=== PATIENT | female | born 1975 | race Caucasian/White ===

== ENCOUNTER 2017-01-05 01:15 | Emergency (ER) | payer MEDICAID | END 2017-01-05 02:30 | disposition home or self-care (01) | LOC: D.ER 01:15 | DX: B37.81 Candidal esophagitis (principal); F17.200 Nicotine dependence, unspecified, uncomplicated ==

== ENCOUNTER 2017-08-10 21:17 | Emergency (ER) | payer MEDICARE | END 2017-08-10 22:22 | disposition home or self-care (01) | LOC: D.ER 21:17 | DX: H66.91 Otitis media, unspecified, right ear (principal) ==

== ENCOUNTER 2019-02-23 21:21 | Emergency (ER) | payer MEDICARE ==
[~2019-02-23] VITALS: Ht 154.9 cm; Wt 90.9 kg
[2019-02-23 21:29] VITALS: BP 148/92; Ht 154.9 cm; Wt 90.9 kg
[2019-02-23] MEDS ORDERED: GABAPENTIN100 MG PO (21:31)
[2019-02-23] MEDS ORDERED: ATIVAN0.5 MG (21:31)
[2019-02-23] MEDS ORDERED: PROTONIX40 MG PO (21:32)
[2019-02-23] MEDS ORDERED: CLARITIN 10 MG10 MG (21:32)
[2019-02-23] MEDS ORDERED: ESKALITH CR450 M1 PO (21:32)
[2019-02-23] MEDS ORDERED: LATUDA40 MG (21:32)
== END 2019-02-24 01:05 | disposition home or self-care (01) ==
LOC: D.ER 21:21
DX: M54.2 Cervicalgia (principal)

== ENCOUNTER 2019-09-07 18:25 | Emergency (ER) | payer MEDICARE ==
[~2019-09-07] VITALS: Ht 154.9 cm; Wt 95.5 kg
[~2019-09-07 18:25] MED LIST: ATIVAN0.5 MG; CLARITIN 10 MG10 MG; ESKALITH CR450 M1 PO; GABAPENTIN100 MG PO; LATUDA40 MG; PROTONIX40 MG PO
[2019-09-07 19:21] VITALS: Ht 154.9 cm; Wt 95.5 kg
[2019-09-07] MEDS ORDERED: [UNRECOGNIZED DRUG - REMARK] (19:23)
[2019-09-07] MEDS ORDERED: LITHIUM CARBON300 MG PO (19:23)
[2019-09-07] MEDS ORDERED: NEURONTIN 300300 MG PO (19:23)
[2019-09-07] MEDS ORDERED: VITAMIN D250000 UNIT PO (19:24)
[2019-09-07] MEDS ORDERED: LATUDA40 MG PO (19:24)
[2019-09-07] MEDS ORDERED: ATIVAN0.5 MG PO (19:24)
[2019-09-07 19:58] LABS: BASOPHILS 0.1 % (0-2); EOSINOPHILS 0.6 % (0-7); HEMATOCRIT 37.9 % (36.0-48.0); HEMOGLOBIN 11.1 g/dL (12-16); IMMATURE GRANULOCYTES 0.1 % (0-5); LYMPHOCYTES 13.9 % (15-50); MCH 26.9 pg (26.0-34.0); MCHC 29.3 g/dL (31.0-37.0); MCV 91.8 fL (80.0-100.0); MEAN PLATELET VOLUME 11.5 fL (7.4-10.4); MONOCYTES 8.2 % (2-11); NEUTROPHILS 77.1 % (40-80); PLATELET COUNT 275 10x3/uL (130-400); RBC 4.13 10x6/uL (4.00-5.40); RDW 17.4 % (11.5-14.5)
[2019-09-07 20:11] LABS: APPEARANCE HAZY (CLEAR); BILIRUBIN NEGATIVE (NEGATIVE); COLOR YELLOW (YELLOW); GLUCOSE NEGATIVE (NEGATIVE); KETONE NEGATIVE (NEGATIVE); NITRITE POSITIVE (NEGATIVE); PROTEIN 1+ mg/dL (NEGATIVE); UROBILINOGEN NORMAL (NORMAL)
[2019-09-07 20:12] LABS: BACTERIA MODERATE /hpf (NEGATIVE); EPITHELIAL CELLS 0-5 /hpf (0-5); WHITE CELLS - URINE >50 /hpf (NEGATIVE)
[2019-09-07 20:15] LABS: CALC OSMOLALITY 273 mosm/kg (275-300); CALCIUM 8.9 mg/dL (8.5-10.1); CARBON DIOXIDE 29.7 mmol/L (21.0-32.0); CHLORIDE - SERUM 103 mmol/L (98-107); CREATININE - SERUM 0.7 mg/dL (0.6-1.3); GLUCOSE 96 mg/dL (74-106); POTASSIUM - SERUM 3.4 mmol/L (3.5-5.1); SODIUM 138 mmol/L (136-145); UREA NITROGEN 6 mg/dL (7-18); eGFR NON AFRICAN AMERICAN > 90 mL/min (90-120)
[2019-09-07 20:18] LABS: HCG URINE NEGATIVE (NEGATIVE)
[2019-09-07 20:22] LABS: ALBUMIN 2.8 g/dL (3.4-5.0); ALKALINE PHOSPHATASE 110 U/L (46-116); ALT (SGPT) 13 U/L (10-68); BILIRUBIN - TOTAL 0.91 mg/dL (0.2-1.3); PROTEIN - SERUM 6.9 g/dL (6.4-8.2)
[2019-09-07] MEDS ORDERED: LEVAQUIN750 MG PO (21:46)
[2019-09-07] MEDS ORDERED: ZOFRAN8 MG PO (21:46)
[2019-09-07 22:53] VITALS: BP 103/63
== END 2019-09-07 22:54 | disposition home or self-care (01) ==
LOC: D.ER 18:25
PROVIDERS: Family Medicine
DX: N12 Tubulo-interstitial nephritis, not specified as acute or chronic (principal); R10.31 Right lower quadrant pain; J18.9 Pneumonia, unspecified organism; Z72.0 Tobacco use

== ENCOUNTER 2019-12-27 22:23 | Inpatient (IN) | payer MEDICARE ==
[~2019-12-27] VITALS: Ht 154.9 cm; Wt 90.7 kg
[~2019-12-27 22:23] MED LIST changes: +ATIVAN0.5 MG PO; +LATUDA40 MG PO; +LEVAQUIN750 MG PO; +LITHIUM CARBON300 MG PO; +NEURONTIN 300300 MG PO; +VITAMIN D250000 UNIT PO; +ZOFRAN8 MG PO; +[UNRECOGNIZED DRUG - REMARK]
[2019-12-27 23:26] LABS: BASOPHILS 0.4 % (0-2); EOSINOPHILS 2.9 % (0-7); HEMATOCRIT 36.4 % (36.0-48.0); HEMOGLOBIN 10.8 g/dL (12-16); IMMATURE GRANULOCYTES 0.3 % (0-5); LYMPHOCYTES 27.6 % (15-50); MCH 26.6 pg (26.0-34.0); MCHC 29.7 g/dL (31.0-37.0); MCV 89.7 fL (80.0-100.0); MEAN PLATELET VOLUME 11.5 fL (7.4-10.4); MONOCYTES 5.2 % (2-11); NEUTROPHILS 63.6 % (40-80); PLATELET COUNT 229 10x3/uL (130-400); RBC 4.06 10x6/uL (4.00-5.40); RDW 15.6 % (11.5-14.5); WBC 7.8 10x3/uL (4.8-10.8)
[2019-12-27 23:28] LABS: CALC OSMOLALITY 273 mosm/kg (275-300); CALCIUM 8.5 mg/dL (8.5-10.1); CARBON DIOXIDE 29.1 mmol/L (21.0-32.0); CHLORIDE - SERUM 103 mmol/L (98-107); CREATININE - SERUM 0.9 mg/dL (0.6-1.3); GLUCOSE 99 mg/dL (74-106); POTASSIUM - SERUM 3.9 mmol/L (3.5-5.1); SODIUM 138 mmol/L (136-145); UREA NITROGEN 7 mg/dL (7-18); eGFR NON AFRICAN AMERICAN 71 mL/min (90-120)
[2019-12-27 23:30] LABS: INR 1.02 (0.85-1.17); PROTIME 13.4 SECONDS (11.6-15.0)
[2019-12-27 23:45] LABS: ALKALINE PHOSPHATASE 107 U/L (30-120); ALT (SGPT) 13 U/L (10-68); BILIRUBIN - TOTAL 0.35 mg/dL (0.2-1.3); CKMB 2.4 U/L (0.0-3.6); CREATINE KINASE 95 UL (21-215); MAGNESIUM - SERUM 2.2 mg/dL (1.8-2.4); PRO BNP 264 pg/mL (0-125); PROTEIN - SERUM 6.4 g/dL (6.4-8.2)
[2019-12-27 23:46] LABS: TROPONIN-I < 0.017 ng/mL (0.000-0.060)
[2019-12-28 02:50] VITALS: BP 114/80
[2019-12-28] MEDS ORDERED: PROTONIX40 MG PO (03:40)
--- NOTE | 2019-12-28 03:48 | NUR ---
PATIENT TO THE FLOOR. PATIENT IS VERY CONCERNED WITH MEDICATION ROUTINE AND STATES IF SHE DOES NOT GET ALL HER MEDS THEN SHE WILL NOT BE STAYING. PATIENT STATES SHE ONLY CAME IN TO SEE IF SHE STILL HAS PNUENOMIA. PATIENT HAS LEFT HAND PIV THAT IS PATENT AND RUNNABX AT THIS TIME. PATIENT SHOWS NO S/SX OF DISTRESS. CALL LIGHT WITHIN REACH AND BED IN LOWEST LOCKED POSITION.
[2019-12-28 04:00] VITALS: BP 121/86
[2019-12-28 04:23] VITALS: BP 127/86; BMI 37.8
[2019-12-28 05:38] LABS: ALBUMIN 2.7 g/dL (3.4-5.0); ALKALINE PHOSPHATASE 101 U/L (30-120); ALT (SGPT) 13 U/L (10-68); BILIRUBIN - TOTAL 0.27 mg/dL (0.2-1.3); CALC OSMOLALITY 275 mosm/kg (275-300); CALCIUM 8.2 mg/dL (8.5-10.1); CARBON DIOXIDE 27.9 mmol/L (21.0-32.0); CHLORIDE - SERUM 105 mmol/L (98-107); CREATININE - SERUM 0.7 mg/dL (0.6-1.3); GLUCOSE 95 mg/dL (74-106); POTASSIUM - SERUM 4.1 mmol/L (3.5-5.1); PROTEIN - SERUM 5.6 g/dL (6.4-8.2); SODIUM 139 mmol/L (136-145); UREA NITROGEN 8 mg/dL (7-18); eGFR NON AFRICAN AMERICAN > 90 mL/min (90-120)
--- NOTE | 2019-12-28 05:56 | NUR ---
PATIENT LAYING IN BED IN SUPINE POSITION, EYES CLOSED BREATHING EVEN AND UNLABORED. NO STRESS NOTED AT THIS TIME. CALL LIGHT WITHIN REACH AND BED IN LOWEST LOCKED POSITION.
[2019-12-28 06:59] LABS: BASOPHILS 0.2 % (0-2); EOSINOPHILS 3.1 % (0-7); HEMATOCRIT 34.2 % (36.0-48.0); HEMOGLOBIN 10.2 g/dL (12-16); IMMATURE GRANULOCYTES 0.1 % (0-5); LYMPHOCYTES 27.8 % (15-50); MCH 26.8 pg (26.0-34.0); MCHC 29.8 g/dL (31.0-37.0); MCV 89.8 fL (80.0-100.0); MONOCYTES 5.6 % (2-11); NEUTROPHILS 63.2 % (40-80); PLATELET COUNT 194 10x3/uL (130-400); RBC 3.81 10x6/uL (4.00-5.40); RDW 15.9 % (11.5-14.5); WBC 8.4 10x3/uL (4.8-10.8)
[2019-12-28 21:48] VITALS: BP 134/82
[2019-12-29] VITALS (7 sets, daily range): BP systolic 106–138; BP diastolic 52–82
[2019-12-29 05:15] LABS: BASOPHILS 0.6 % (0-2); EOSINOPHILS 4.1 % (0-7); HEMATOCRIT 35.6 % (36.0-48.0); HEMOGLOBIN 10.2 g/dL (12-16); LYMPHOCYTES 32.8 % (15-50); MCH 26.3 pg (26.0-34.0); MCHC 28.7 g/dL (31.0-37.0); MEAN PLATELET VOLUME 11.8 fL (7.4-10.4); MONOCYTES 6.6 % (2-11); NEUTROPHILS 55.9 % (40-80); PLATELET COUNT 199 10x3/uL (130-400); RBC 3.88 10x6/uL (4.00-5.40); RDW 15.9 % (11.5-14.5)
[2019-12-29 05:21] LABS: MCV 91.8 fL (80.0-100.0); WBC 5.2 10x3/uL (4.8-10.8)
[2019-12-29 05:35] LABS: ALBUMIN 2.5 g/dL (3.4-5.0); ALKALINE PHOSPHATASE 107 U/L (30-120); ALT (SGPT) 12 U/L (10-68); BILIRUBIN - TOTAL 0.61 mg/dL (0.2-1.3); CALC OSMOLALITY 274 mosm/kg (275-300); CALCIUM 8.4 mg/dL (8.5-10.1); CHLORIDE - SERUM 107 mmol/L (98-107); CREATININE - SERUM 0.6 mg/dL (0.6-1.3); GLUCOSE 92 mg/dL (74-106); LDH 151 U/L (81-234); PROTEIN - SERUM 5.7 g/dL (6.4-8.2); SODIUM 139 mmol/L (136-145); eGFR NON AFRICAN AMERICAN > 90 mL/min (90-120)
[2019-12-29 05:50] LABS: UREA NITROGEN 5 mg/dL (7-18)
[2019-12-29 07:49] LABS: APTT 32.3 SECONDS (22.8-39.4); INR 1.08 (0.85-1.17)
--- NOTE | 2019-12-29 08:11 | MORECARE ---
CASE MANAGEMENT DISCHARGE SUMMARY PATIENT: CLAUDIA SANTIAGO UNIT: [id number] ADM DATE: 12/28/19 AGE: 44 : 71 SEX: F ROOM/BED: D.2230 AUTHOR: CESAR NICOLE PHYSICIAN: REFERRING PHYSICIAN: JORGE L MCGREGOR MD DATE OF SERVICE: 12/29/19 Discharge Plan Patient Name: CLAUDIA SANTIAGO [facility] [facility] 1975 Planned Disposition: Home Anticipated Discharge Date: Discharge Date: Expected LOS: Initial Reviewer: [email or web address] Initial Review Date: 12/29/2019 Generated: 12/29/19 9:11 am DCPIA - Discharge Planning Initial Assessment Updated by [email or web address]: Kelsey Cabezas on 12/29/19 8:11 am * Is the patient Alert and Oriented? Yes * How many steps to enter\exit or inside your home? 0/0 * PCP Dr. Juliocesar Macdonald - first visit 01/10 * Pharmacy [facility] * Preadmission Environment Home Alone * ADLs Independent * Equipment None * List name and contact numbers for known caregivers / representatives who currently or will assist patient after discharge: Kristyn Cullen - [facility] - [phone] * Verbal permission to speak to the caregivers and representatives has been obtained from the patient. Yes * Community resources currently utilized None * Additional services required to return to the preadmission environment? No * Can the patient safely return to the preadmission environment? Yes * Has this patient been hospitalized within the prior 30 days at any hospital? No Patient Name: CLAUDIA SANTIAGO Page [phone] at 0811 All edits/amendments must be made on the electronic document DICTATION DATE: 12/29/19810 PIPE ORGAN BUILDER: WILLIE 12/29/19810 RPT#: [id number] DC DATE: STATUS: ADM IN [facility] [address] [place] [address] END OF REPORT
--- NOTE | 2019-12-29 08:18 | MORECARE ---
CASE MANAGEMENT DISCHARGE SUMMARY PATIENT: CLAUDIA SANTIAGO UNIT: [id number] ADM DATE: 12/28/19 AGE: 44 : 71 SEX: F ROOM/BED: D.2230 AUTHOR: BONNIE,DOC PHYSICIAN: REFERRING PHYSICIAN: JORGE L MCGREGOR MD DATE OF SERVICE: 12/29/19 Discharge Plan Patient Name: CLAUDIA SANTIAGO Facility: [facility]:[place] : 1975 Planned Disposition: Home Anticipated Discharge Date: Discharge Date: Expected LOS: Initial Reviewer: [email or web address] Initial Review Date: 12/29/2019 Generated: 12/29/19 9:17 am Comments DCP- Discharge Planning Updated by [email or web address]: Kelsey Cabezas on 12/29/19 7:[address] Patient Name: CLAUDIA SANTIAGO Admission Status: ER Accout number: [id number] Admission Date: 12-28-2019 : 1975 Admission Diagnosis: Attending: JORGE L MCGREGOR Current LOS: 1 Anticipated DC Date: Planned Disposition: Home Primary Insurance: MEDICARE A & B Discharge Planning Comments: CM met with patient to complete initial dc planning assessment. CM educated patient on the CM role and verbal consent given by patient to complete assessment. Patient lives at home alone, address and phone number verified on face sheet. At discharge patient plans to return and feels this is a safe discharge. CM discussed availability of home health, rehab services, and medical equipment. Patient denied known discharge needs at this time. States her car is here and she will drive herself home on discharge. CM will continue to follow and will assist as needed with dc plans/needs. Shot Peening Operator: Kelsey Cabezas DCPIA - Discharge Planning Initial Assessment Updated by [email or web address]: Kelsey Cabezas on 12/29/19 8:11 am * Is the patient Alert and Oriented? Yes * How many steps to enter\exit or inside your home? 0/0 * PCP Dr. Juliocesar Macdonald - first visit 01/10 * Pharmacy [facility] [address] * Preadmission Environment Home Alone * ADLs Independent * Equipment None * List name and contact numbers for known caregivers / representatives who currently or will assist patient after discharge: Kristyn [facility] [phone] * Verbal permission to speak to the caregivers and representatives has been obtained from the patient. Yes * Community resources currently utilized None * Additional services required to return to the preadmission environment? No * Can the patient safely return to the preadmission environment? Yes * Has this patient been hospitalized within the prior 30 days at any hospital? No Last DP export: 12/29/19 7:11 a Patient Name: CLAUDIA SANTIAGO Page [phone] at 0818 All edits/amendments must be made on the electronic document DICTATION DATE: 12/29/19816 PRINCIPAL GIFTS OFFICER: WILLIE 12/29/19816 RPT#: [id number] DC DATE: STATUS: ADM IN [facility] [address] [place] [address] END OF REPORT
--- NOTE | 2019-12-29 10:15 | NUR ---
PATIENT TO GET THORACENTESIS.
--- NOTE | 2019-12-29 11:55 | NUR ---
PATIENT IN ROOM WITH IV INTACT. NO COMPLAINTS OR SIGNS OF DISTRESS. VS STABLE. DRESSING OVER PROCEDURE SITE CDI. FAMILY AT BEDSIDE. CALL LIGHT WITHIN REACH.
[2019-12-29 16:23] LABS: PROTEIN - BODY FLUID 2.6 G/DL
[2019-12-29 17:44] LABS: EOS BF 3 %; MACROPHAGES BF 18 %; MESOTHELIALS BF 3 %; NEUT - BF 23 %
--- NOTE | 2019-12-29 19:31 | NUR ---
PATIENT RESTING IN BED WITH NO S/S OF DISTRESS. S/L IV TO PATIENT'S LEFT FA. PATIENT DENIES OTHER NEEDS AT THIS TIME. BED IN LOWEST POSITION AND CALL LIGHT WITHIN REACH. ENCOURAGED THE PATIENT TO CALL IF SHE HAS NEEDS. WILL CONTINUE TO MONITOR.
--- NOTE | 2019-12-29 20:00 | NUR ---
PATIENT IN SHOWER AT THIS TIME
--- NOTE | 2019-12-29 21:07 | NUR ---
PATIENT RESTING IN BED WITH GUEST AT BEDSIDE AND NO S/S OF DISTRESS. BED IN LOWEST POSITION AND CALL LIGHT WITHIN REACH. ENCOURAGED THE PATIENT TO CALL IF HE HAS NEEDS. WILL CONTINUE TO MONITOR.
--- NOTE | 2019-12-29 21:07 | NUR ---
ADMINISTERED MEDS PER ORDERS. PATIENT DENIES OTHER NEEDS AT THIS TIME. BED IN LOWEST POSITION AND CALL LIGHT WITHIN REACH. ENCOURAGED THE PATIENT TO CALL IF SHE HAS NEEDS.
[2019-12-30] VITALS: BP 106/66
[2019-12-30 04:00] VITALS: BP 121/80
[2019-12-30 06:20] LABS: BASOPHILS 0.2 % (0-2); EOSINOPHILS 4.1 % (0-7); HEMATOCRIT 35.9 % (36.0-48.0); HEMOGLOBIN 10.3 g/dL (12-16); LYMPHOCYTES 21.3 % (15-50); MCHC 28.7 g/dL (31.0-37.0); MCV 90.7 fL (80.0-100.0); MEAN PLATELET VOLUME 12.3 fL (7.4-10.4); NEUTROPHILS 68.4 % (40-80); PLATELET COUNT 208 10x3/uL (130-400); RBC 3.96 10x6/uL (4.00-5.40); RDW 15.9 % (11.5-14.5); WBC 5.8 10x3/uL (4.8-10.8)
[2019-12-30 06:35] LABS: ALBUMIN 2.6 g/dL (3.4-5.0); ALKALINE PHOSPHATASE 98 U/L (30-120); ALT (SGPT) 11 U/L (10-68); BILIRUBIN - TOTAL 0.55 mg/dL (0.2-1.3); CALC OSMOLALITY 273 mosm/kg (275-300); CALCIUM 8.2 mg/dL (8.5-10.1); CARBON DIOXIDE 28.8 mmol/L (21.0-32.0); CHLORIDE - SERUM 106 mmol/L (98-107); CREATININE - SERUM 0.7 mg/dL (0.6-1.3); GLUCOSE 97 mg/dL (74-106); POTASSIUM - SERUM 3.7 mmol/L (3.5-5.1); PROTEIN - SERUM 5.9 g/dL (6.4-8.2); SODIUM 138 mmol/L (136-145); eGFR NON AFRICAN AMERICAN > 90 mL/min (90-120)
[2019-12-30 06:37] LABS: UREA NITROGEN 7 mg/dL (7-18)
--- NOTE | 2019-12-30 07:38 | NUR ---
RESTING IN BED, NO DISTRESS NOTED, UP AD PAULA IN ROOM, PROVIDED WITH CUP FOR SPUTUM SPECIMEN, SL IN PLACE, ABT INFUSING
[2019-12-30 09:06] VITALS: BP 121/83
[2019-12-30 09:09] LABS: ANA REFLEX - DIRECT Negative (Negative)
--- NOTE | 2019-12-30 10:04 | NUR ---
I have reviewed this patient and I concur with the Shift Assessment completed by the Licensed Practical Nurse today this shift.
[2019-12-30 12:50] VITALS: BP 112/70
[2019-12-30 13:09] LABS: ACID FAST SMEAR Negative (()); AFB SPECIMEN PROCESSING Not Indicated (())
[2019-12-30 16:08] LABS: FUNGUS STAIN Final report (())
[2019-12-30 16:44] VITALS: BP 117/76
[2019-12-30 20:00] VITALS: BP 131/78
--- NOTE | 2019-12-30 20:00 | NUR ---
PT SITTING UP IN BED WITHOUT DISTRESS, AOX4. IV LEFT WRIST INFUSING ABX AT THIS TIME. NO REDNESS OR SWELLING AT SITE. SLIGHT SWELLING TO LEFT HAND FROM PREVIOUS IV INFILTRATION. PT USING INCENTIVE SPIROMETER. BILAT LOWER LOBES DIMINISHED. SOB WITH EXERTION. ADVIL GIVEN FOR PT FEELING ACHY. DENIES OTHER NEEDS. CL IN REACH, WILL CTM
[2019-12-31 04:00] VITALS: BP 119/75
[2019-12-31 06:56] LABS: ALBUMIN 2.5 g/dL (3.4-5.0); ALKALINE PHOSPHATASE 90 U/L (30-120); ALT (SGPT) 11 U/L (10-68); BILIRUBIN - TOTAL 0.55 mg/dL (0.2-1.3); CALC OSMOLALITY 274 mosm/kg (275-300); CALCIUM 8.4 mg/dL (8.5-10.1); CARBON DIOXIDE 25.6 mmol/L (21.0-32.0); CHLORIDE - SERUM 106 mmol/L (98-107); CREATININE - SERUM 0.7 mg/dL (0.6-1.3); GLUCOSE 117 mg/dL (74-106); POTASSIUM - SERUM 3.5 mmol/L (3.5-5.1); PROTEIN - SERUM 5.8 g/dL (6.4-8.2); SODIUM 138 mmol/L (136-145); UREA NITROGEN 7 mg/dL (7-18); VANCOMYCIN - TROUGH 23.4 ug/mL (10.0-20.0); eGFR NON AFRICAN AMERICAN > 90 mL/min (90-120)
[2019-12-31 07:21] LABS: BASOPHILS 0.2 % (0-2); IMMATURE GRANULOCYTES 0.4 % (0-5); LYMPHOCYTES 28.4 % (15-50); MCHC 29.4 g/dL (31.0-37.0); MCV 91.6 fL (80.0-100.0); MONOCYTES 6.9 % (2-11); NEUTROPHILS 60.1 % (40-80); PLATELET COUNT 194 10x3/uL (130-400); RBC 3.71 10x6/uL (4.00-5.40); RDW 16.2 % (11.5-14.5); WBC 5.5 10x3/uL (4.8-10.8)
--- NOTE | 2019-12-31 08:09 | NUR ---
ALERT AND ORIENTED. LUNGS DIMINISHED TO BLL. HEART SOUNDS S1 AND S2 HEARD IN ALL BARAJAS. BOWEL SOUNDS ACTIVE X 4. SKIN INTACT WITHOUT REDNESS. IV TO LEFT WRIST PATENT WITHOUT REDNESS. DENIES PAIN. DENIES NEEDS. BED LOW. CALL ENGLAND AND PERSONAL ITEMS IN REACH. WILL CONTINUE TO MONITOR.
[2019-12-31 09:06] VITALS: BP 116/65
--- NOTE | 2019-12-31 10:02 | MORECARE ---
CASE MANAGEMENT DISCHARGE SUMMARY PATIENT: CLAUDIA SANTIAGO UNIT: [id number] ADM DATE: 12/28/19 AGE: 44 : 71 SEX: F ROOM/BED: D.2230 AUTHOR: BONNIE,DOC PHYSICIAN: REFERRING PHYSICIAN: JORGE L MCGREGOR MD DATE OF SERVICE: 12/31/19 Discharge Plan Patient Name: CLAUDIA SANTIAGO Facility[facility]:[place] : 1975 Planned Disposition: Home Anticipated Discharge Date: Discharge Date: Expected LOS: Initial Reviewer: [email or web address] Initial Review Date: 12/29/2019 Generated: 12/31/19 11:02 am Comments DCP- Discharge Planning Updated by [email or web address]: Kelsey Cabezas on 12/29/19 7:[address] Patient Name: CLAUDIA SANTIAGO Admission Status: ER Accout number: [id number] Admission Date: 12-28-2019 : 1975 Admission Diagnosis: Attending: JORGE L MCGREGOR Current LOS: 1 Anticipated DC Date: Planned Disposition: Home Primary Insurance: MEDICARE A & B Discharge Planning Comments: CM met with patient to complete initial dc planning assessment. CM educated patient on the CM role and verbal consent given by patient to complete assessment. Patient lives at home alone, address and phone number verified on face sheet. At discharge patient plans to return and feels this is a safe discharge. CM discussed availability of home health, rehab services, and medical equipment. Patient denied known discharge needs at this time. States her car is here and she will drive herself home on discharge. CM will continue to follow and will assist as needed with dc plans/needs. Package Yarns Drying Machine Operator: Kelsey Cabezas DCPIA - Discharge Planning Initial Assessment Updated by [email or web address]: Kelsey Cabezas on 12/29/19 8:11 am * Is the patient Alert and Oriented? Yes * How many steps to enter\exit or inside your home? 0/0 * PCP Dr. Juliocesar Macdonald - first visit 01/10 * Pharmacy [facility] on [address] * Preadmission Environment Home Alone * ADLs Independent * Equipment None * List name and contact numbers for known caregivers / representatives who currently or will assist patient after discharge: Kristyn [facility] [phone] * Verbal permission to speak to the caregivers and representatives has been obtained from the patient. Yes * Community resources currently utilized None * Additional services required to return to the preadmission environment? No * Can the patient safely return to the preadmission environment? Yes * Has this patient been hospitalized within the prior 30 days at any hospital? No External Providers External Provider: Flaco Sneed Contact Date: Service Request Date: Service Type: Resolution: Reviewer: Comments: Last DP export: 12/29/19 7:18 a Patient Name: CLAUDIA SANTIAGO Page [phone] at 1002 All edits/amendments must be made on the electronic document DICTATION DATE: 12/31/19 1002 PUT IN BEAT ADJUSTER: WILLIE 12/31/19 1002 RPT#: [id number] DC DATE: STATUS: ADM IN [facility] [address] [place] [address] END OF REPORT
--- NOTE | 2019-12-31 10:16 | MORECARE ---
CASE MANAGEMENT DISCHARGE SUMMARY PATIENT: CLAUDIA SANTIAGO UNIT: [id number] ADM DATE: 12/28/19 AGE: 44 : 71 SEX: F ROOM/BED: D.2230 AUTHOR: BONNIEDOC PHYSICIAN: REFERRING PHYSICIAN: JORGE L MCGREGOR MD DATE OF SERVICE: 12/31/19 Discharge Plan Patient Name: CLAUDIA SANTIAGO Facility: [facility]:[place] : 1975 Planned Disposition: Home Anticipated Discharge Date: Discharge Date: Expected LOS: Initial Reviewer: [email or web address] Initial Review Date: 12/29/2019 Generated: 12/31/19 11:16 am Comments DCP- Discharge Planning Updated by [email or web address]: Kelsey Cabezas on 12/31/19 9:[address] Received an order for nebulizer. I spoke with the patient and nebulizer ordered through [facility] and clinical faxed. I instructed the patient she will need to get her a box of nebulizer med at her pharmacy before her med comes in from [facility], voiced understanding. She declines other needs. Patient has not been on any oxygen since admission. CM will continue to follow and assist with discharge planning/needs. DCP- Discharge Planning Updated by [email or web address]: Kelsey Cabezas on 12/29/19 7:[address] Patient Name: CLAUDIA SANTIAGO Admission Status: ER Accout number: [id number] Admission Date: 12-28-2019 : 1975 Admission Diagnosis: Attending: JORGE L MCGREGOR Current LOS: 1 Anticipated DC Date: Planned Disposition: Home Primary Insurance: MEDICARE A & B Discharge Planning Comments: CM met with patient to complete initial dc planning assessment. CM educated patient on the CM role and verbal consent given by patient to complete assessment. Patient lives at home alone, address and phone number verified on face sheet. At discharge patient plans to return and feels this is a safe discharge. CM discussed availability of home health, rehab services, and medical equipment. Patient denied known discharge needs at this time. States her car is here and she will drive herself home on discharge. CM will continue to follow and will assist as needed with dc plans/needs. Circus Artist: Kelsey Cabezas DCPIA - Discharge Planning Initial Assessment Updated by [email or web address]: Kelsey Cabezas on 12/29/19 8:11 am * Is the patient Alert and Oriented? Yes * How many steps to enter\exit or inside your home? 0/0 * PCP Dr. Juliocesar Macdonald - first visit 01/10 * Pharmacy [facility] [address] * Preadmission Environment Home Alone * ADLs Independent * Equipment None * List name and contact numbers for known caregivers / representatives who currently or will assist patient after discharge: Kristyn Cullen [facility] - [phone] * Verbal permission to speak to the caregivers and representatives has been obtained from the patient. Yes * Community resources currently utilized None * Additional services required to return to the preadmission environment? No * Can the patient safely return to the preadmission environment? Yes * Has this patient been hospitalized within the prior 30 days at any hospital? No Coverage Notice Reviewer: [email or web address] Cabezas Notice Issued Date-Time: 12/31/2019 10:03 Notice Type: IM Discharge Notice Notice Delivered To: Patient Relationship to Patient: Self Mental Health Advanced Practice Nurse Name: Delivery Method: HAND - Hand Delivered Lisa Days: Prior Verbal Notification: Recipient Understood Notice: Yes Recipient Signature: Yes Med Rec Note Co-signed by Attending: Coverage Notice Comment: IMM explained, signed, given, copy placed in MR Reviewer: [id number] Arturo Cabezas Notice Issued Date-Time: 12/31/2019 10:05 Notice Type: Patient Choice Letter Notice Delivered To: Patient Relationship to Patient: Self Mental Health Advanced Practice Nurse Name: Delivery Method: HAND - Hand Delivered Lisa Days: Prior Verbal Notification: Recipient Understood Notice: Yes Recipient Signature: Yes Med Rec Note Co-signed by Attending: Coverage Notice Comment: WENDY for Wangkendra Sam DP export: 12/31/19 9:02 a Patient Name: CLAUDIA SANTIAGO Page [phone] at 1016 All edits/amendments must be made on the electronic document DICTATION DATE: 12/31/19 1016 AUTOMOTIVE TIRE TESTER: WILLIE 12/31/19 1016 RPT#: [id number] DC DATE: STATUS: ADM IN [facility] [address] [place] [address] END OF REPORT
[2019-12-31] MEDS ORDERED: Nicoderm [PBKC] TRANSDERM (12:35)
[2019-12-31] MEDS ORDERED: FLORAJEN3 CAPS460 MG PO (12:35)
[2019-12-31] MEDS ORDERED: TESSALON PERLE100 MG PO (12:35)
[2019-12-31] MEDS ORDERED: MUCINEX600 MG PO (12:35)
[2019-12-31] MEDS ORDERED: LEVAQUIN750 MG PO (12:36)
[2019-12-31] MEDS ORDERED: CLINDAMYCIN HC300 MG PO (12:37)
[2019-12-31 12:49] VITALS: BP 130/70
[2019-12-31 13:19] VITALS: Ht 154.9 cm; Wt 90.7 kg
--- NOTE | 2019-12-31 15:26 | NUR ---
DC EDUCATION PROVIDED BOTH WRITTEN AND VERBAL. VERBALIZED UNDERSTANDING. DENIES FURTHER QUESTIOSN. IV REMOVED FRO LEFT WRIST WITH TIP INTACT. PATIENT DC HOME WITH ALL BELONGINGS.
--- NOTE | 2020-01-01 09:42 | MORECARE ---
CASE MANAGEMENT DISCHARGE SUMMARY PATIENT: CLAUDIA SANTIAGO UNIT: [id number] ADM DATE: 12/28/19 AGE: 44 : 71 SEX: F ROOM/BED: D.2230 AUTHOR: BONNIEDOC PHYSICIAN: REFERRING PHYSICIAN: JORGE L MCGREGOR MD DATE OF SERVICE: 01/01/20 Discharge Plan Patient Name: CLAUDIA SANTIAGO Facility: [facility]:[place] : 1975 Planned Disposition: Home Anticipated Discharge Date: Discharge Date: 12/31/2019 Expected LOS: 0 Initial Reviewer: [email or web address] Initial Review Date: 12/29/2019 Generated: 01/01/20 10:41 am Comments DCP- Discharge Planning Updated by [email or web address]: Kelsey Cabezas on 12/31/19 9:[address] Received an order for nebulizer. I spoke with the patient [facility]. I instructed the patient she will need to get her a box of nebulizer med at her pharmacy before her med comes in from [facility], voiced understanding. She declines other needs. Patient has not been on any oxygen since admission. CM will continue to follow and assist with discharge planning/needs. DCP- Discharge Planning Updated by [email or web address]: Kelsey Cabezas on 12/29/19 7:[address] Patient Name: CLAUDIA SANTIAGO Admission Status: ER Accout number: [id number] Admission Date: 12-28-2019 : 1975 Admission Diagnosis: Attending: JORGE L MCGREGOR Current LOS: 1 Anticipated DC Date: Planned Disposition: Home Primary Insurance: MEDICARE A & B Discharge Planning Comments: CM met with patient to complete initial dc planning assessment. CM educated patient on the CM role and verbal consent given by patient to complete assessment. Patient lives at home alone, address and phone number verified on face sheet. At discharge patient plans to return and feels this is a safe discharge. CM discussed availability of home health, rehab services, and medical equipment. Patient denied known discharge needs at this time. States her car is here and she will drive herself home on discharge. CM will continue to follow and will assist as needed with dc plans/needs. Metal Box Maker: Kelsey Cabezas DCPIA - Discharge Planning Initial Assessment Updated by [email or web address]: Kelsey Cabezas on 12/29/19 8:11 am * Is the patient Alert and Oriented? Yes * How many steps to enter\exit or inside your home? 0/0 * PCP Dr. Juliocesar Macdonald - first visit 01/10 * Pharmacy [facility] [address] * Preadmission Environment Home Alone * ADLs Independent * Equipment None * List name and contact numbers for known caregivers / representatives who currently or will assist patient after discharge: Kristyn Cullen [facility] - [phone] * Verbal permission to speak to the caregivers and representatives has been obtained from the patient. Yes * Community resources currently utilized None * Additional services required to return to the preadmission environment? No * Can the patient safely return to the preadmission environment? Yes * Has this patient been hospitalized within the prior 30 days at any hospital? No Coverage Notice Reviewer: [email or web address] Cabezas Notice Issued Date-Time: 12/31/2019 10:03 Notice Type: IM Discharge Notice Notice Delivered To: Patient Relationship to Patient: Self Core Cutter And Reamer Name: Delivery Method: HAND - Hand Delivered Lisa Days: Prior Verbal Notification: Recipient Understood Notice: Yes Recipient Signature: Yes Med Rec Note Co-signed by Attending: Coverage Notice Comment: IMM explained, signed, given, copy placed in MR Reviewer: [email or web address] Arturo Cabezas Notice Issued Date-Time: 12/31/2019 10:05 Notice Type: Patient Choice Letter Notice Delivered To: Patient Relationship to Patient: Self Core Cutter And Reamer Name: Delivery Method: HAND - Hand Delivered Lisa Days: Prior Verbal Notification: Recipient Understood Notice: Yes Recipient Signature: Yes Med Rec Note Co-signed by Attending: Coverage Notice Comment: WENDY for Annetta Sam DP export: 12/31/19 9:16 a Patient Name: CLAUDIA SANTIAGO Page [phone] at 0942 All edits/amendments must be made on the electronic document DICTATION DATE: 01/01/20940 CEMENT FINISHER HELPER: WILLIE 01/01/20940 RPT#: [id number] DC DATE:12/31/19 STATUS: DIS IN [facility] [address] [place] [address] END OF REPORT
== END 2019-12-31 15:27 | disposition home or self-care (01) | DRG 186 ==
LOC: D.ER 22:23 → D.MS 12-28 02:44
PROVIDERS: Family Medicine; Internal Medicine Pulmonary Disease; Radiology Diagnostic Radiology; ADMIT Internal Medicine Nephrology; ATTEND Internal Medicine Nephrology
PROC: 0W9930Z Drainage of Right Pleural Cavity with Drainage Device, Percutaneous Approach (ICD-10-PCS; principal; 2019-12-29 11:00)
DX: J90 Pleural effusion, not elsewhere classified (principal); J18.9 Pneumonia, unspecified organism; J98.11 Atelectasis; J44.0 Chronic obstructive pulmonary disease with (acute) lower respiratory infection; F17.203 Nicotine dependence unspecified, with withdrawal; F12.10 Cannabis abuse, uncomplicated; D64.9 Anemia, unspecified; K21.9 Gastro-esophageal reflux disease without esophagitis